=== PATIENT | male | born 1970 | race Caucasian/White ===

== ENCOUNTER 2019-12-19 11:03 | Outpatient (CLI) | payer OTHER, SELFPAY ==
--- NOTE | ~2019-12-19 | XR_ITS ---
XR abdomen/kub 1V 12/19/2019 11:30 Indication: Kidney stones Procedure: KUB Comparison: No prior studies for comparison. Findings: Bowel gas pattern is nonobstructive. There are bilateral renal stones. No acute osseous abn ormality. Moderate colonic fecal loading. Impression: 1: Bilateral nephrolithiasis. Reviewed, dictated and finalized at location B. Impression: 1: Bilateral nephrolithiasis.
--- NOTE | ~2019-12-19 | CT_ITS ---
EXAMINATION: CT abdomen pelvis wo con DATE: 12/19/2019 11:35 INDICATION: Kidney stones. TECHNIQUE: Computed tomography (CT) of the abdomen and pelvis was performed without intravenous contr ast. Automated exposure control and iterative reconstruction technique were employed. The dose-length product was 387.45 mGy-cm. COMPARISON: None. FINDINGS: The visualized portions of the lung bases demonstrate mild atelectasis. No pleural effusion . The heart size is normal. No pericardial effusion. There is a 9 mm cyst in the liver. There is a 1. 9 cm mass in left hepatic lobe. The gallbladder, spleen, pancreas, and adrenal glands are normal. The re are 4 stones in right kidney measuring up to 6 mm. There is a 13 mm cyst in left kidney. There is a 13 mm hyperdense mass in left kidney. There is cortical thinning of left kidney. There are 7 stones in left kidney measuring up to 7 mm. The prostate is mildly enlarged. There are bilateral inguinal h ernias containing fat. There are no dilated loops of bowel. The appendix is normal. There are no path ologically enlarged lymph nodes. There is no free intraperitoneal fluid. There is an umbilical hernia containing fat. There is mild thoracolumbar spondylosis. IMPRESSION: 1. Bilateral nonobstructing kidney stones. 2. 1.9 cm liver mass, which may be benign or malignant. Abdomen MRI without and with contrast is judi mmended. 3. 13 mm hyperdense left kidney mass, which may be a hemorrhagic cyst or less likely a solid neoplasm . This finding can be further evaluated on the same abdomen MRI. Reviewed, dictated and finalized at location A. IMPRESSION: 1. Bilateral nonobstructing kidney stones. 2. 1.9 cm liver mass, which may be benign or malignant. Abdomen MRI without and with contrast is recommended. 3. 13 mm hyperdense left kidney mass, which may be a hemorrhagic cyst or less l ikely a solid neoplasm. This finding can be further evaluated on the same abdom en MRI.
== END 2019-12-19 11:04 | disposition home or self-care (01) ==
PROVIDERS: Visit Provider Urology
DX: N20.0 Calculus of kidney (principal)
CPT/HCPCS: 74018; 74176

== ENCOUNTER 2020-01-03 15:21 | Outpatient (CLI) | payer OTHER, SELFPAY ==
--- NOTE | ~2020-01-03 | MR_ITS ---
EXAMINATION: MR abdomen wo/w con DATE: 01/03/2020 16:48 INDICATION: Neoplasm of uncertain behavior of left kidney. TECHNIQUE: Magnetic resonance imaging (MRI) of the abdomen was performed without and with 20 mL Multi Michelle intravenous contrast. Sequences included coronal T2-weighted FS FSE, coronal and axial FIESTA F S, coronal LAVA-flex, axial LAVA, axial T2-weighted FSE, axial T1-weighted dual-echo FSPGR, axial STI R FSE, and axial DWI. Postcontrast sequences included coronal LAVA-flex and a time course of axial LA VA. COMPARISON: CT abdomen and pelvis 12/19/2019 FINDINGS: There are 2 cysts in the liver with the larger measuring 1.6 cm. There is a 9 mm hyperenhancing mass in right hepatic lobe, likely a hemangioma or focal nodular hyperplasia. The gallbladder, spleen, car[place]qu[place] cre[place], and adrenal glands are normal. There are cysts in the kidneys measuring up to 1.7 cm on the le ft. There is a 1.8 cm hemorrhagic cyst in left kidney. There are no dilated loops of bowel. There are no pathologically enlarged lymph nodes. There is no free intraperitoneal fluid. IMPRESSION: 1. 9 mm hyperenhancing liver mass, likely a hemangioma or focal nodular hyperplasia. 2. 1.8 cm hemorrhagic cyst in left kidney correlating with the CT abnormality. Reviewed, dictated and finalized at location A. MIXER IMPRESSION: 1. 9 mm hyperenhancing liver mass, likely a hemangioma or focal nodular hyperpl cameron. 2. 1.8 cm hemorrhagic cyst in left kidney correlating with the CT abnormality.
[2020-01-03 16:06] LABS: Estimated Glomerular Filt Rate > 60
== END 2020-01-03 15:22 | disposition home or self-care (01) ==
PROVIDERS: Visit Provider Urology
DX: D41.02 Neoplasm of uncertain behavior of left kidney (principal); N28.1 Cyst of kidney, acquired
CPT/HCPCS: 74183; A9577